=== PATIENT | male | born 1985 | race Two or more races ===

== ENCOUNTER 2023-02-28 19:23 | Emergency (ER) | payer MEDICAID, OTHER ==
[~2023-02-28] VITALS: Ht 182.9 cm; Wt 97.7 kg
[2023-03-01 04:40] VITALS: BP 120/78; PULSE 82; RESP 18; TEMP 98; O2SAT 98
[2023-03-01] MEDS ORDERED: AUG875T PO (04:41)
== END 2023-03-01 05:15 | disposition home or self-care (01) ==
LOC: ER 19:24
DX: L02.31 Cutaneous abscess of buttock (principal)
CPT/HCPCS: 10060